=== PATIENT | female | born 1965 | race Caucasian/White ===

== ENCOUNTER → 2020-07-01 12:44 | Outpatient (CLI) | payer OTHER, SELFPAY ==
--- NOTE | 2020-07-01 13:04 | BI_ITS ---
MAMMOGRAPHY - BILATERAL SCREENING REASON FOR EXAM: Female, 55 years old. Routine annual screening examination. PERTINENT HISTORY: Aunt with breast cancer. TECHNIQUE: Digital bilateral breast chelsea (3D mammographic acquisition) in the CC and MLO projections. 2-D mediolateral oblique (MLO) and craniocaudad (CC) views of both breasts were obtained. CAD: Full Field Digital Mammography with Computer Added Detection was performed. COMPARISON: No comparison mammograms available at this time. If any prior films become available, an addendum to this report can be generated. FINDINGS: Breast Composition: The breasts are heterogeneously dense, which may obscure small masses. There are no dominant masses or suspicious calcifications. No other significant abnormalities are identified. BI/SCRN MAMM (CAD)W/CHELSEA BILAT IMPRESSION: Negative screening mammogram. Yearly followup mammogram recommended. (A) ASSESSMENT CATEGORY: BIRADS Category 1: Negative. A letter regarding these results will be sent to the patient by the facility within 30 days. Approximately 10% of breast cancers are not detected by mammography. A normal mammogram should not delay biopsy of a clinically suspicious abnormality. [id number] Electronically Signed: Vamsi Mejias MD at 14:40 EDT , Service support ,
== END ==
PROVIDERS: PCP Family Medicine; Referring Provider Family Medicine; Visit Provider Family Medicine
DX: Z12.31 Encounter for screening mammogram for malignant neoplasm of breast (principal)
CPT/HCPCS: 77063; 77067

== ENCOUNTER → 2021-02-06 17:16 | Outpatient (CLI) | payer OTHER, SELFPAY ==
[2021-02-06 18:15] LABS: Absolute Lymphocyte Count 2.08 X10^3/uL (0.83-4.51); Absolute Neutrophil Count 5.6 X10^3/uL (2.0-7.7); Basophil# 0.06 X10^3/uL; Basophil% 0.7 % (0-1); Eosinophil# 0.08 X10^3/uL; Eosinophils% 0.9 % (0-5); Hematocrit 36.7 % (37-47); Hemoglobin 12.2 g/dL (12.0-15.0); Lymphocyte # 2.08 X10^3/ul (0.83-4.51); Lymphocyte % 24.4 % (19-41); Mean Corp Hgb Conc 33.2 g/dL (32-36); Mean Corpuscular Hgb 30.7 pg (27.0-32.0); Mean Corpuscular Volume 92.4 fL (81-99); Monocyte# 0.63 X10^3/uL; Monocyte% 7.4 % (0-10); NRBC Flagged by Analyzer 0 % (0-5); Neutrophil # 5.64 X10^3/uL (2.7-7.7); Neutrophil % 66.2 % (47-70); Platelet Count 308 K/mm3 (150-450); RBC Distribution Width CV 12.4 % (11.6-14.6); RBC Distribution Width SD 42.1 fl (35.1-43.9); Red Blood Count 3.97 M/mm3 (4.2-5.4); White Blood Count 8.5 K/mm3 (4.4-11.0)
[2021-02-06 19:06] LABS: AST(SGOT) 23 U/L (15-37); Alanine Aminotransfer ALT/SGPT 37 U/L (13-56); Albumin, Serum 3.8 g/dL (3.2-5.0); Alkaline Phosphatase 67 U/L (45-117); Anion Gap 6 (5-15); BUN 15 mg/dL (7-18); BUN/Creat Ratio 22.1 RATIO (10-20); Calcium,Total 9.4 mg/dL (8.5-10.1); Chloride 104 mmol/L (98-107); Creatinine, Serum 0.68 mg/dL (0.55-1.02); EST Glomerular Filtration Rate 96 mL/min (>60); Est Glom Filt Rate - Afr Amer 116 mL/min (>60); Globulin 3.9 g/dL (2.2-4.2); Glucose 80 mg/dL (74-106); Potassium 4.1 mmol/L (3.5-5.1); Protein, Total 7.7 g/dL (6.4-8.2); Sodium Level 139 mmol/L (136-145); Thyroid Stim Hormone (TSH) 1.18 uIU/mL (0.358-3.74)
== END ==
LOC: MFPLAB 17:17
PROVIDERS: PCP Family Medicine; Visit Provider Family Medicine
DX: F32.A Depression, unspecified (principal)
CPT/HCPCS: 36415; 80053; 84443; 85025

== ENCOUNTER → 2022-06-28 | Outpatient (CLI) | payer BC, SELFPAY ==
--- NOTE | 2022-06-28 16:07 | BI_ITS ---
MAMMOGRAPHY - BILATERAL SCREENING 3-D TOMOSYNTHESIS REASON FOR EXAM: Female, 57 years old. screening PERTINENT HISTORY: Aunt with breast cancer.. TECHNIQUE: 2-D mammograms and 3-D Tomosynthesis of the breast (s) were performed. CAD was performed. COMPARISON: 07/01/2020 FINDINGS: The breast composition is composed of scattered fibroglandular density. Scattered benign calcifications are seen. No dense spiculated masses or suspicious microcalcifications are identified. No architectural distortion is identified. There is no skin thickening or retraction. There has been no significant change since the prior study. BI/SCRN MAMM (CAD)W/CHELSEA BILAT IMPRESSION: No mammographic signs of malignancy. Routine yearly mammograms recommended. ASSESSMENT CATEGORY: BIRADS Category 2: Benign. A letter regarding these results will be sent to the patient by the facility within 30 days. FOLLOW UP RECOMMENDATION: Yearly follow up mammogram recommended. (A) Approximately 10% of breast cancers are not detected by mammography. A normal mammogram should not delay biopsy of a clinically suspicious abnormality. Electronically Signed: Ayo Coy MD at 7:51 EDT ,
== END | disposition home or self-care (01) ==
LOC: OPBI 16:06
PROVIDERS: PCP Family Medicine; Referring Provider Family Medicine; Visit Provider Family Medicine
DX: Z12.31 Encounter for screening mammogram for malignant neoplasm of breast (principal)
CPT/HCPCS: 77063; 77067

== ENCOUNTER → 2022-08-03 | Outpatient (CLI) | payer BC, SELFPAY ==
[2022-08-10 16:10] LABS: HPV APTIMA, High Risk Negative (Negative)
[2022-08-15 20:37] LABS: HPV Reflexed? YES, CHARGE PATIENT
== END | disposition home or self-care (01) ==
LOC: MFPLAB 14:53 → LABSPEC 14:54
PROVIDERS: PCP Family Medicine; Visit Provider Family Medicine
DX: Z12.4 Encounter for screening for malignant neoplasm of cervix (principal)
CPT/HCPCS: 87624; 88175; G0145

== ENCOUNTER → 2022-08-25 | Outpatient (CLI) | payer BC, SELFPAY ==
--- NOTE | 2022-08-25 10:08 | US_ITS ---
INDICATION: Epigastric pain EXAMINATION: Ultrasound US Abdomen Complete TECHNIQUE: Guillen-scale and color Doppler imaging was performed of the abdomen. COMPARISON: None. FINDINGS: LIVER: 15.2 cm in length. Increased echogenicity. GALLBLADDER Size: Contracted. Stones: Multiple stones and sludge filling the gallbladder. Wall thickness: Thickened. 7 mm. Pericholecystic fluid: None. Sonographic Martin sign: Negative. EXTRAHEPATIC BILE DUCTS: Common bile duct 4 mm not dilated. PANCREAS: Unremarkable. SPLEEN: Unremarkable. RIGHT KIDNEY: No hydronephrosis. LEFT KIDNEY: No hydronephrosis. AORTA/IVC: Unremarkable. ASCITES: None. US/Abdomen Complete IMPRESSION: Cholelithiasis. Contracted gallbladder. Thickened gallbladder wall may be consistent with acute or chronic cholecystitis. Fatty infiltration of liver. Electronically Signed: Ashley Spence MD at 7:59 EDT ,
== END | disposition home or self-care (01) ==
PROVIDERS: PCP Family Medicine; Referring Provider Family Medicine; Visit Provider Family Medicine
DX: R10.13 Epigastric pain (principal)
CPT/HCPCS: 76700

== ENCOUNTER → 2022-08-28 | Outpatient (CLI) | payer BC, SELFPAY ==
[2022-08-28 09:55] LABS: Mucous, Urine 0 SEEN /hpf (<or=2+)
[2022-08-28 10:06] LABS: Color, Urine Yellow (Yellow); Glucose, Dipstick Normal (Normal); Ketone-Dipstick Negative (Negative); Leukocyte Esterase-Dipstick 100 /ul (Negative); Nitrite-Dipstick Positive (Negative); Occult Blood-Urine 50 /ul (Negative); Protein-Dipstick Negative (Negative); Urine Bilirubin Dipstick Negative (Negative); Urine Clarity Sl. Cloudy (Clear); Urine Urobilinogen Normal (Normal)
[2022-08-28 10:12] LABS: Bacteria 4+ /hpf (None Seen); Red Blood Cells-Urine 0-5 SEEN /hpf (0-5); Squamous Epithelial Cells - UA 0-5 SEEN /hpf (5-10); White Blood Cells 0-5 SEEN /hpf (0-5)
== END | disposition home or self-care (01) ==
LOC: PAVLAB 09:20
PROVIDERS: PCP Family Medicine; Referring Provider Surgery; Visit Provider Surgery
DX: N39.0 Urinary tract infection, site not specified (principal); Z87.448 Personal history of other diseases of urinary system
CPT/HCPCS: 81001; 87077; 87086; 87088; 87186

== ENCOUNTER → 2022-08-31 | Outpatient (CLI) | payer BC, SELFPAY ==
--- NOTE | 2022-08-31 12:54 | CT_ITS ---
EXAM: CT ABDOMEN AND PELVIS WITHOUT INTRAVENOUS CONTRAST CLINICAL INDICATION: Hematuria. TECHNIQUE: Helically acquired images were obtained of the abdomen and pelvis without intravenous contrast. This CT exam was performed using one or more of the following dose reduction techniques: automated exposure control, adjustment of the mA and/or kV according to patient size, and/or use of iterative reconstruction technique. RADIATION DOSE: CTDIvol = 7.34 mGy, DLP = 368.48 mGy-cm COMPARISON: No relevant prior studies available. FINDINGS: LOWER THORAX: Unremarkable. Lung bases are clear. No cardiomegaly. No significant pericardial effusion. ABDOMEN: LIVER: Unremarkable. Homogeneous. GALLBLADDER AND BILE DUCTS: Abnormal thickening of the gallbladder wall. The gallbladder is not dilated. No visible gallstones. PANCREAS: Unremarkable. No focal cystic mass. SPLEEN: Unremarkable. Normal size without focal cystic or solid mass. ADRENALS: Unremarkable. No nodules. KIDNEYS AND URETERS: 6 mm fat density in the left posterior renal parenchyma is most renal angiomyolipoma. No stones or hydronephrosis in both kidneys. Normal renal size and position. STOMACH AND BOWEL: Unremarkable. No stomach or bowel distention. No focal inflammatory change. PELVIS: APPENDIX: Normal. BLADDER: Unremarkable. REPRODUCTIVE: Unremarkable as visualized. No mass. ABDOMEN and PELVIS: INTRAPERITONEAL SPACE: Unremarkable. No ascites or other fluid collection. No free air. BONES/JOINTS: Pronounced L5-S1 degenerative disc space height narrowing with degenerative vacuum phenomenon. Mild degenerative retrolisthesis of L1 on L2. Ossified posterior longitudinal ligament at the T9 vertebral body level. No suspicious lytic or blastic abnormality. SOFT TISSUES: Unremarkable. No discrete abdominal or pelvic wall hernia. VASCULATURE: Unremarkable. Abdominal aorta is non-dilated. LYMPH NODES: Unremarkable. No enlarged lymph nodes. OTHER FINDINGS: Intradiscal calcification is at the T9-T10 disc space level. CT/Abdomen/Pelvis without Cont IMPRESSION: 1. No acute findings in the abdomen or pelvis. 2. 6 mm fat density in the left posterior renal parenchyma is most likely angiomyolipoma. Electronically Signed: Quoc Alicea MD at 13:29 EDT ,
== END | disposition home or self-care (01) ==
PROVIDERS: PCP Family Medicine; Referring Provider Surgery; Visit Provider Surgery
DX: N39.0 Urinary tract infection, site not specified (principal); Z87.448 Personal history of other diseases of urinary system
CPT/HCPCS: 74176

== ENCOUNTER 2022-09-03 11:33 | Day surgery (SDC) | payer BC, SELFPAY ==
[2022-09-03] VITALS (7 sets, daily range): BP systolic 120–134; BP diastolic 69–99; PULSE 60–91; RESP 16–18; TEMP 36.4–36.6; O2SAT 93–100; BMI 23.3
--- NOTE | 2022-09-03 | GALL_PTH ---
PATIENT: JEREMI COOK LOC: [facility] [place] U#:[id number] AGE/SX: 57/F ROOM: RE09/03/[address]: Dr. Zulema Hanna MD : 1965 BED: DIS: 09/03/2022 SPEC #: [id number] RECD: 09/03/22 15:04 STATUS: SHYLA REBoni #: [id number] CAROLE: 09/03/22 00:[address]: Zulema Hanna DEPT: SURGICAL PATHOLOGY RECD BY: Tania Romero ENTERED: 09/04/22 09:38 SP TYPE: VLADIMIR GRIMES DR: Dr. Nettie Boykin MD Tissues: Gallbladder, NOS Procedures: Surgery Specimen Level III HEADER OPERATION: Laparoscopic cholecystectomy with IOC PRE-OP DIAGNOSIS: Gallstones TISSUE SUBMITTED: Gallbladder MICROSCOPIC DIAGNOSIS Gallbladder, cholecystectomy: Cholesterolosis, chronic cholecystitis and cholelithiasis. AM:kalli 09/05/2022 MICROSCOPIC DESCRIPTION Slides are reviewed. GROSS DESCRIPTION Received is one container labeled with the patient's name and designated gallbladder. The specimen consists of a gallbladder measuring 7.0 x 2.0 x 1.0 cm. The external surface is smooth and glistening. Focally, it is granular, hemorrhagic and contains cautery artifact. The lumen of the gallbladder contains yellow-green mucoid bile and multiple minute chalky yellow calculi ranging in size from <0.1 to 0.1 cm in greatest dimension. The mucosa is bile-stained and without any mass lesions. The gallbladder wall averages 0.2 cm in thickness and is free of mass lesions. Head Stock Operator sections of the gallbladder and the cystic duct at margin of resection are submitted in one cassette. / AM:kalli 09/04/2022 TC:[address] [facility]: [id number]
[2022-09-03] MEDS: Lactated Ringers 1,000 ML 15 ML IV ×2 (11:40→14:42)
--- NOTE | 2022-09-03 11:53 | HP.PCM_ITS ---
History and Physical Date of Admission: 09/03/22 Date of Service:? 08/28/22 MR#: [id number] Acct: [id number] Name:JEREMI CERVANTES Rep #: [id number] : 1965 ? ? Provider: Dr. Zulema Hanna MD Age/Sex:? 57/F ? ? Location: [facility] Status: Signed with Addenda ADDENDUM by Dr. Zulema Hanna MD on 08/28/22 at 1106 Intake Chief Complaint: gallbladder Allergies No Known Allergies Allergy (Unverified 08/28/22 08:46) Medications duloxetine 60 mg capsule,delayed release 60 mg PO DAILY 08/28/22 [History Confirmed 08/28/22] sulfamethoxazole 800 mg-trimethoprim 160 mg tablet (Bactrim DS) 1 tab PO BID #14 tabs 08/28/22 [Rx Confirmed 08/28/22] Assessment and Plan Assessment and Plan (1) Gallstones: ?Status:?Acute (2) Hx of hematuria: ?Status:?Acute ? ? ? Orders: Orders Urinalysis, Complete Today Z87.448 - Personal history of other diseases of urinary system ? Culture, Urine Today N39.0 - Urinary tract infection, site not specified ? Abdomen/Pelvis without Cont Today N39.0 - Urinary tract infection, site not specified, Z87.448 - Personal history of other diseases of urinary system ? Medications: New sulfamethoxazole-trimethoprim 800-160 mg (Bactrim DS) 1 TAB? PO BID 14 tabs 0RF ? ? Plan Patient's UA did have positive nitrates, 50 red blood cells, 100 leuk esterase, 4+ bacteria did add on a culture as well.? Also adding a CT abdomen pelvis without contrast for any possible kidney stones.? Patient tentatively scheduled for gallbladder 09/03. 08/28/22 1106 <Electronically signed by Zulema Hanna MD> Date Zulema Hanna MD cc:? Dr. Nettie Boykin MD ~* Signed Intake Vital Signs ? 08/29/2307:45 Height 5 ft 6 in Weight: 148 lb 6 oz BMI 23.9 BP 122/78 H Blood Pressure Location Rt brachial Position Sitting Respiration 17 Pulse 62 Pulse Source Monitor Temp 96.4 F L Temp Source Temporal Pulse Oximetry (%) 100 Oxygen Delivery Method room air Intake Visit Reasons:?GALLBLADDER Chief Complaint: gallbladder Is patient in pain?: No Allergies No Known Allergies Allergy (Unverified 08/28/22 08:46) Medications duloxetine 60 mg capsule,delayed release 60 mg PO DAILY 08/28/22 [History Confirmed 08/28/22] PFSH Family History?(Updated 08/28/22 @ 08:45 by Virginia Foreman) Father Heart diseaseMother Heart disease Hypertension Social History?(Updated 08/28/22 @ 08:45 by Virginia Foreman) Smoking Status:? Never smoker alcohol intake:? current alcohol intake frequency: holidays/special occasions only substance use type:? does not use HPI HPI HPI: 57-year-old female presents due to gallstones.? Patient had a gallbladder ultrasound which showed gallstones called a thickened wall at 7 mm?on my read it is about 2.5 mm, no pericholecystic fluid, normal common bile duct.? Patient states that she had some queso and started to have some epigastric pain after eating it got worse and woke her up at night.? Otherwise patient states she does eat quite a bit of cheese and usually does not have any issues.? Patient states a couple days later she did have some lower abdominal pain and did have symptomatic diarrhea for about 6 days.? Patient's ultrasound also looked at bilateral kidneys and did not see any hydronephrosis.? Patient states he only has reflux maybe a couple times since May and 1 of those times was that epigastric pain she had the other night.? Currently patient denies any abdominal pain. ROS General General: No weight change, appetite, fatigue, colon cancer or breast cancer HEENT HEENT: No difficulty swallowing, eye injury, eye surgery, swollen glands or hoarseness Endo Endocrine: No thyroid disease, diabetes mellitus, thyroid cancer, Hair loss, heat intolerance or cold intolerance Skin Skin: No rash or changing moles Musc Musculoskeletal: No back problems, arthritis, rheumatoid arthritis, gout or joint pain Cardio Cardiovascular: No murmur, pacemaker, heart disease, atrial fibrillation, high blood pressure, heart attack, heart stent, palpitations, shortness of breat with exertion or chest pain Psych Psychiatric: Yes depression and anxiety; No hearing voices Resp Respiratory: No shortness of breath, Yes sleep apnea, No cough, No COPD, No asthma, No emphysema and No wheezing Gastro Gastrointestinal: Yes abdominal pain, Yes nausea or vomiting, No diarrhea, No constipation, No blood in stool, Yes acid reflux, No hemorrhoids, No ulcers, Yes gallbladder problem and No black,tarry stools [place] Hematologic: No blood thinners, No blood disorders, No bleeding, No anemia and No blood clots Neuro Neurologic: No numbness and No tingling Exam Const General: cooperative, healthy appearing and no acute distress HENMT Head: normal to inspection Resp Effort & Inspection: normal respiratory effort Cardio Rate: regular rate GI Inspection: non-distended Palpation: soft, no guarding and nontender Skin General: no rashes or lesions noted Neuro General: patient oriented x3 Extrem General: no clubbing, cyanosis or edema Psych Affect: normal affect Assessment and Plan Assessment and Plan (1) Gallstones: ?Status:?Acute (2) Hx of hematuria: ?Status:?Acute ? ? ? Orders: Orders Urinalysis, Complete Today Z87.448 - Personal history of other diseases of urinary system ? Plan Discussed with patient normal pathophysiology of gallbladder disease and gallst ones.? Patient's initial epigastric pain after eating does fit this description.? Did discuss with patient that hematuria would not be due to her stomach or gallbladder.? And likely this was a second issue.? Personally reviewed ultrasound the abdomen and reviewed with patient. Reviewed the anatomy with the patient and discussed the procedure: laparoscopic cholecystectomy with cholangiograms, possible open. Review risks including but not limited to bleeding, infection, hernia, bile leak, retained gallstones requiring another procedure ERCP- Endoscopic Retrograde Cholangiopancreatography, injury to another organ (bile ducts, common bile duct, small bowel, etc.) and conversion to an open procedure. All questions were answered. Discuss with patient that her 6 days of hematuria is not due to her gallbladder or stomach but ultrasound did not show hydronephrosis in either kidney.? Patient does state that her abdominal pain 2 days after the initial epigastric pain was lower in the abdomen.? Plan to check a UA. Zulema Hanna M.D. Pager: [phone] [facility] [address] [place] [address], [facility], [address] [place] [address] Office: [phone] Coding Level of Care Code Off vis,new,level 4 Diagnoses Gallstones? K80.20 Hx of hematuria? Z87.448 08/28/22 1010 <Electronically signed by Zulema Hanna MD> Date Zulema Hanna MD
--- NOTE | 2022-09-03 12:58 | RAD_ITS ---
EXAM: FL CHOLANGIOGRAPHY AND/OR PANCREATOGRAPHY CLINICAL INDICATION: LAP DARCI WITH IOC TECHNIQUE: Fluoroscopic cholangiogram and/or pancreatography of the right upper quadrant. Fluoroscopic guidance was provided by a physician. RADIATION DOSE: Cumulative dose total 4.16 mGy. COMPARISON: No relevant prior studies available. FINDINGS: Cystic duct injection shows rapid opacification of the common duct and emptying into the duodenum, with no visible filling defect. No significant dilatation of intrahepatic ducts. RAD/Cholangiogram/ O R,Initial IMPRESSION: Fluoroscopic intraoperative images. No choledocholithiasis. Electronically Signed: Lillie Jackman MD at 5:38 EDT ,
[2022-09-03] MEDS: Cefazolin 2 GM in 0.9% Normal Saline 100 ML IV (13:03)
[2022-09-03] MEDS: Bupivacaine Mpf 0.5% 30 ML VIAL (14:04)
--- NOTE | 2022-09-03 14:08 | PCM.OPRPT ---
Report of Operation Date of Procedure: 09/03/22 Pre-Operative Diagnosis: Cholelithiasis Post-Operative Diagnosis: Same Surgery/Procedure Performed:: Laparoscopic cholecystectomy with cholangiograms Surgeon: Zulema Hanna Type of Anesthesia: General/Supplemental Anesthesiologist: Kody Esposito Special Medications: Ancef 2 g IV x1 Specimen's removed: Gallbladder and stones Estimated Blood Loss (mL): 20 cc Description of Procedure: Indications: this is a 57 year-old female who developed abdominal pain/nausea/vomiting and on workup was found to have cholelithiasis, with a normal common bile duct. Laparoscopic cholecystectomy was elected. Description procedure: The patient was placed on operating table in supine position. A timeout was completed verifying correct patient, procedure, site, position and special equipment prior to beginning procedure. General Anesthesia was induced. The abdomen was prepped and draped in usual sterile fashion. An incision was made in the natural skin line above the umbilicus. The fascia was elevated and incised. The peritoneum was elevated and incised. Entry into the peritoneum was confirmed visually and no bowel was noted in the vicinity of the incision. Win trocar was placed. The abdomen was insufflated with carbon dioxide to a pressure of 12-15 mmHg. Patient tolerated insufflation well. The laparoscope was then inserted and abdomen inspected. No injuries from initial trocar placement were noted. Additional trochars were then inserted in the following locations 5 mm trocar in the epigastrium and 2 more 5 mm trochars along the right costal margin. The abdomen was inspected no abnormalities were found. The table is placed in reverse Trendelenburg position with the right side up. The adhesions between the gallbladder and omentum were lysed sharply. The dome of the gallbladder was grasped with atraumatic grasper passed through the lateral port and retracted over the dome of the liver. Infundibulum was then grasped with atraumatic grasper through the midclavicular port and retracted to the right lower quadrant. This maneuver exposed Calot's triangle. The peritoneum overlying the gallbladder infundibulum was then incised and cystic duct and artery identified and circumferentially dissected. Lao catheter was used for cholangiograms. The cholangiogram showed good filling of the common bile duct into the duodenum with no filling defects, good filling of the right and left bile ducts as well. The cystic duct and artery were then doubly clipped and divided close to the gallbladder. The gallbladder then dissected from its peritoneal attachments by electrocautery. Hemostasis was checked and the gallbladder and contained stones were removed using the endoscopic retrieval bag through the umbilical port. The gallbladder is passed off table as specimen. The gallbladder fossa was irrigated with saline and hemostasis obtained. There is no evidence of bleeding from the gallbladder fossa or cystic artery leakage of bile from the cystic duct stump. Secondary trochars removed under direct vision. No bleeding was noted the trocar sites. The laparoscope was withdrawn and umbilical trocar removed. The abdomen was allowed to collapse. The fascia of the 12 mm trocar was closed with a [id number] 0 Vicryl suture. The skin was closed with sutures of 4-0 Monocryl and Steri-Strips. The patient was extubated. The patient tolerated procedure well and was taken to the postanesthesia care unit in stable condition. Complications none
--- NOTE | 2022-09-03 14:09 | DCINST_ITS ---
Discharge Instructions Diet Discharge Diet: Light diet - advance as tolerated Activity Discharge Activity: May Not Drive (while taking narcotic pain medications.) May shower in (days): 1 Lifting Restrictions: no lifting >20 lbs x 2 wks, no strenuous exercise for 4 wks Dressing / Incision Call your doctor if your incision/area has: Continuous Slow Oozing, Sudden Increased Bleeding, Increased Pain/ Swelling, Increased Redness, Foul Smelling Discharge and Swelling at the incision site Call your doctor if you observe: Fever of 101 or Higher Remove Dressing in: 2 days Cleanse incision/area with: Soap & Water Additional Dressing/Incision Instructions:: Steri-Strips will fall off in 7 to 10 days, if they do not fall off okay to remove after 10 days. Follow Up Care Please Follow Up With: Zulema Hanna MD When: Call the office for a follow-up appointment 2 weeks; after 5 PM and on the weekends call [phone] with any concerns. Test Results: Test results from this visit will be discussed in further detail at your follow- up appointment, if applicable. Discharge Plan Admission Attending Provider: Zulema Hanna Primary Care Provider: Nettie Boykin Instructions Additional Instructions / Restrictions: Do not take any migraine medicine for 3 days Discharge Orders/Prescriptions Prescriptions: New oxycodone-acetaminophen 5-325 mg tablet 1 - 2 tab PO Q6H PRN (Reason: pain) 3 Days Qty: 14 0RF Continued sulfamethoxazole-trimethoprim [Bactrim DS] 800-160 mg tablet 1 tab PO BID Qty: 14 0RF Other Ambulatory Orders: 12 Lead EKG (Routine) Timeframe: [id number] Location: None Selected Ordered By: Dr. Sampson Mills Referrals / Follow Up: Nettie Boykin MD [Primary Care Provider] - Disposition Disposition (needs filled in before D/C Order can be placed): Home, Self Care
== END 2022-09-03 16:43 | disposition home or self-care (01) ==
LOC: SDC 11:33 → AC 11:37
PROVIDERS: PCP Family Medicine; Referring Provider Surgery; Visit Provider Surgery
PROC: (CPT 47610; principal; 2022-09-03 12:40)
DX: K80.10 Calculus of gallbladder with chronic cholecystitis without obstruction (principal)
CPT/HCPCS: 47563; 00790; 74300; 76000; 88304; 93005; J7120; J2405